=== PATIENT | male | born 1980 | race Caucasian/White ===

== ENCOUNTER 2017-12-29 08:09 | Outpatient (CLI) | payer BC ==
--- NOTE | 2017-12-29 09:23 | ULT ---
BILATERAL RENAL ULTRASOUND: HISTORY: Renal lesion on MRI. FINDINGS: The right kidney measures 10.5 cm in length and the left kidney measures 11.8 cm in length. No hydro nephrosis is seen on either side. There is a 1.6 x 1.4 x 1.3 cm complex lesion mixed hypoechoic lesi on in the right kidney. The urinary bladder is incompletely distended. IMPRESSION: A 1.6 cm complex lesion in the right kidney. This should be evaluated with MRI (with and without IV contrast). POS: HARMAN
== END 2017-12-29 08:10 | disposition home or self-care (01) ==
LOC: SCSULT 08:09
PROVIDERS: ATTEND Family Medicine
DX: N28.9 Disorder of kidney and ureter, unspecified (principal)
CPT/HCPCS: 76770

== ENCOUNTER 2018-01-18 08:35 | Outpatient (CLI) | payer BC ==
[2018-01-18] MEDS ORDERED: Iopamidol 370 76% 100 ML VIAL ONE (09:00)
--- NOTE | 2018-01-18 10:04 | CT ---
CT ABDOMEN AND PELVIS WITH AND WITHOUT CONTRAST: HISTORY: Right renal cyst. Abnormality seen in the right kidney on prior examination. COMPARISON: Renal ultrasound from 12/29/2017. TECHNIQUE: Multiple contiguous axial images were obtained in a CT of the abdomen and pelvis with and without IV contrast. Post contrast images were obtained in nephrographic and excretory phases. Coronal reforma ts were performed. FINDINGS: Gallstones are seen in the gallbladder. The liver, adrenal glands, and pancreas are unremarkable. T here is an arterial enhancing lesion in the spleen, measuring 2.6 cm in size, which becomes isodense to the spleen on the delayed images. This is nonspecific and well circumscribed. There are hypodensities in the right kidney, measuring up to 2 cm in size, which represents simple cy sts. No solid renal mass is identified. No calcifications are seen in either kidney or ureter. The urinary bladder is unremarkable. No abdominal or pelvic lymphadenopathy is seen. The large and small bowel are unremarkable. The sunitha endix is normal. There is a retrocardiac left renal vein. The osseous structures, visualized inferior thorax, and abdominal wall soft tissues are unremarkable. IMPRESSION: 1. Right renal cyst. 2. Cholelithiasis. 3. Nonspecific area of hyperenhancement in the spleen is most likely benign. A follow-up CT in six months is recommended to ensure stability. POS: HARMAN
== END 2018-01-18 08:36 | disposition home or self-care (01) ==
LOC: SCSCT 08:35
PROVIDERS: ATTEND Urology
DX: N28.1 Cyst of kidney, acquired (principal); K80.20 Calculus of gallbladder without cholecystitis without obstruction
CPT/HCPCS: 74170

== ENCOUNTER 2018-05-07 09:28 | Outpatient (CLI) | payer BC ==
[2018-05-07 09:42] LABS: Hemoglobin 15.7 g/dL (14.0-18.0); Mean Corpuscular Hemoglobin 31.5 pg (27.0-31.0); Mean Platelet Volume 6.7 fL (7.4-10.4); Platelet Count 333 thou/uL (130-400); RBC Distribution Width 11.2 % (11.5-14.5); Red Blood Cell (RBC) Count 4.98 mill/uL (4.70-6.10); White Blood Cell (WBC) Count 7.6 thou/uL (4.8-10.8)
[2018-05-07 10:04] LABS: Anion Gap 8 mmol/L (10-20); BUN (Urea Nitrogen) 12 mg/dL (8.9-20.6); Calc. Creatinine Clearance 0 mL/min (70-130); Calcium 10.2 mg/dL (7.8-10.44); Carbon Dioxide 31 mmol/L (22-29); Chloride 102 mmol/L (98-107); Estimated GFR-MDRD 79; Glucose 93 mg/dL (70-105); Potassium 4.3 mmol/L (3.5-5.1); Sodium 137 mmol/L (136-145)
== END 2018-05-07 09:29 | disposition home or self-care (01) ==
LOC: LABBT 09:28
PROVIDERS: ATTEND Neurological Surgery
DX: Z01.818 Encounter for other preprocedural examination (principal); M54.16 Radiculopathy, lumbar region
CPT/HCPCS: 80048; 85027; 93005; 93010

== ENCOUNTER 2018-05-14 08:22 | Day surgery (SDC) | payer BC ==
[2018-05-07 09:44] VITALS: BMI 28.8
[2018-05-14] MEDS ORDERED: CEFAZOLIN 2 GM/50 ML BAG ONE ×2 (08:59→10:06)
[2018-05-14] MEDS ORDERED: Fentanyl 100 MCG/2 ML VIAL ONE (10:03)
[2018-05-14] MEDS ORDERED: Midazolam HCl 2 mg/2 ml Vial ONE (10:18)
[2018-05-14] MEDS ORDERED: HYDROcodone/Acetaminophen 5/325 mg Tablet ONE (12:54)
--- NOTE | 2018-05-14 13:24 | OP ---
DATE OF PROCEDURE: 05/14/2018 SURGEON: Tai Gates M.D. HEALTH UNIT CLERK: Nilo Gallardo PROCEDURE: Left L5-S1 micro hemilaminectomy and microdiskectomy. PROCEDURE IN DETAIL: The patient brought to the operating room, intubated. He was rolled in the pro ne position on gel-filled chest rolls. Incision made exposing L5 and S1 on the left and our level wa s confirmed by x-ray. We performed left L5-S1 hemilaminectomy, removed the yellow ligament, identifi ed the left S1 nerve root and beneath it was a bulging disk which was incised and debrided. The disk space itself had a calcified overhang and was very narrowed. A complete decompression of left S1 wa s achieved. The wound was then extensively irrigated, immaculate hemostasis was secured. Vancomycin powder was applied and the wound was closed in anatomic layers.
[2018-05-14] MEDS ORDERED: PROPOFOL 200 MG/20 ML VIAL ONE (17:15)
[2018-05-14] MEDS ORDERED: Lidocaine 1% PF 5 ML VIAL ONE (17:15)
[2018-05-14] MEDS ORDERED: PHENYLEPHRINE-NS 100 MCG/ML 10 ML SYRINGE ONE (17:15)
[2018-05-14] MEDS ORDERED: Ondansetron PF 4 MG/2 ML Vial ONE (17:15)
[2018-05-14] MEDS ORDERED: Ketorolac Tromethamine 30 MG/ML VIAL ONE (17:15)
[2018-05-14] MEDS ORDERED: Vecuronium 10 MG VIAL ONE (17:15)
[2018-05-14] MEDS ORDERED: Dexamethasone 20 MG/5 ML VIAL ONE (17:15)
== END 2018-05-14 13:50 | disposition home or self-care (01) ==
LOC: SDC 08:22
PROVIDERS: ATTEND Neurological Surgery
PROC: 01NB0ZZ Release Lumbar Nerve, Open Approach (ICD-10-PCS; principal; 2018-05-14)
DX: M51.17 Intervertebral disc disorders with radiculopathy, lumbosacral region (principal)
CPT/HCPCS: 76001; J1100; J1885; J2001; J2250; J2405; J2704; J3010; J3370

== ENCOUNTER 2019-03-26 07:35 | Outpatient (CLI) | payer BC ==
--- NOTE | 2019-03-26 09:15 | CT ---
CT ABDOMEN WITH AND WITHOUT CONTRAST: INDICATIONS: Follow up splenic lesion. COMPARISON: CT abdomen dated 01/18/2018. That exam revealed an enhancing lesion in the spleen. TECHNIQUE: Multiplanar reconstruction. FINDINGS: Noncontrast image again shows a low density lesion in the spleen. This lesion shows hyperenhancement on the venous phase sequence. This lesion continues to measure approximately 2.6 cm and is unchange d in size and appearance. Splenic hemangioma would be suspected. The liver and pancreas are unremarkable. There are at least two peripherally calcified gallstones in the gallbladder. The gallstones were als o described on the prior study. The adrenal glands are normal. There are at least two right renal cystic lesions, which are stable from the prior exam. The kidneys are otherwise unremarkable. The visualized bowel loops are unremarkable. The aorta is of normal caliber. IMPRESSION: 1. A 2.6 cm enhancing lesion in the spleen is stable from the examination of 01/18/2018. Splenic he mangioma would be suspected. 2. Cholelithiasis is again noted. 3. Right renal cystic lesions remain stable. POS: OFF
== END 2019-03-26 07:36 | disposition home or self-care (01) ==
LOC: SCSCT 07:35
PROVIDERS: ATTEND Family Medicine
DX: D73.9 Disease of spleen, unspecified (principal); K80.20 Calculus of gallbladder without cholecystitis without obstruction; N28.1 Cyst of kidney, acquired
CPT/HCPCS: 74170

== ENCOUNTER 2019-09-24 09:10 | Outpatient (CLI) | payer BC ==
--- NOTE | 2019-09-24 14:44 | CT ---
CT Abdomen Pelvis W Con History: R 10.9 abdominal pain unspecified Comparison: CT abdomen March 2019 Findings: Lung bases are clear. No pericardial effusion. There is cholelithiasis without cholecystitis. The enhancing splenic mass has not grown. The portal vein is patent. Pancreas is unremarkable. Mild diverticular disease of the descending colo n without active current inflammation. The appendix is visualized and is normal. No retroperitoneal periaortic adenopathy. Benign renal cysts are similar. No abnormal solid enhancing mass. Aortoiliac contour is normal. Moderate narrowing of the L5/S1 disc space with 2 mm retrolisthesis and circumferential disc osteophyte complex. Moderate bilateral neural foraminal narrowing. Benign bone island intertrochanteric region right femur. Impression: 1. No acute inflammatory process within the abdomen or pelvis. 2. Unchanged benign splenic hemangioma. 3. Unchanged benign simple renal cysts. 4. Mild diverticular disease descending colon without active current inflammation. 5. Normal appendix. 6. Cholelithiasis without cholecystitis.
== END 2019-09-24 09:11 | disposition home or self-care (01) ==
LOC: SCSCT 09:10
PROVIDERS: ATTEND Family Medicine
DX: R10.9 Unspecified abdominal pain (principal); D18.09 Hemangioma of other sites; N28.1 Cyst of kidney, acquired; K80.20 Calculus of gallbladder without cholecystitis without obstruction; K57.30 Diverticulosis of large intestine without perforation or abscess without bleeding
CPT/HCPCS: 74177

== ENCOUNTER 2021-06-07 13:42 | Outpatient (CLI) | payer OTHER ==
[~2021-06-07 13:42] MED LIST: Magnevist 469MG/ML 20 ML VIAL ONE
== END 2021-06-07 13:43 | disposition home or self-care (01) ==
LOC: TBSIIMAG 13:42
PROVIDERS: ATTEND Neurological Surgery
DX: M51.26 Other intervertebral disc displacement, lumbar region (principal); M47.816 Spondylosis without myelopathy or radiculopathy, lumbar region
CPT/HCPCS: 72158